=== PATIENT | female | born 2000 | race Caucasian/White ===

== ENCOUNTER 2024-02-21 17:57 | Inpatient (IN) | payer OTHER, SELFPAY ==
[~2024-02-21] VITALS: Ht 160 cm; Wt 88.6 kg
[2024-02-21] MEDS ORDERED: MED REC CURRENTLY UNOBTAINABLE XX SCH (20:55)
[2024-02-22] MEDS ORDERED: MAALOX 30 ML SUSP *UDC PO PRN (00:25)
[2024-02-22] MEDS ORDERED: ACETAMINOPHEN TAB 650MG DOSE (2X325MG) PO PRN (00:25)
[2024-02-22] MEDS ORDERED: traZODone 50 MG TAB PO PRN (00:25)
[2024-02-22] MEDS ORDERED: diphenhydrAMINE 25MG CAP PO PRN (00:25)
[2024-02-22] MEDS ORDERED: MOM 30ML SUSPENSION UDC PO PRN (00:25)
[2024-02-22] MEDS: IBUPROFEN 400MG TAB PO PRN (02:00)
[2024-02-22 02:06] VITALS: BP 147/78; TEMP 97.8; O2SAT 96
[2024-02-22] MEDS: SERTRALINE HCL 25 MG TABLET PO SCH (08:50)
[2024-02-22] MEDS ORDERED: SERTRALINE HCL 25 MG TABLET PO SCH (09:00)
[2024-02-22] MEDS ORDERED: SERT25TA85 PO (09:07)
[2024-02-22] MEDS ORDERED: QUET50TA4 PO (09:07)
[2024-02-22] MEDS ORDERED: HOME MED LIST COMPLETE! XX SCH (09:10)
[2024-02-22 11:26] VITALS: BP 141/87; TEMP 97.5; O2SAT 100
[2024-02-22] MEDS: OLANZapine ORAL DISINTEGRATING TAB 5MG PO PRN (11:37)
[2024-02-22] MEDS: PANTOPRAZOLE 40MG TAB (PROTONIX) PO SCH (12:10)
[2024-02-22 12:21] LABS: BASO % 0.3 % (0.0-1.0); EOS # 0.1 10^3/uL (0.0-0.5); HEMATOCRIT 38.4 % (36.0-47.0); HEMOGLOBIN 13.1 g/dl (12.0-15.5); LYMPH # 2.9 10^3/uL (1.5-5.0); MEAN CORPUSCULAR HEMOGLOBIN 30.8 pg (27.0-33.0); MEAN CORPUSCULAR HGB CONC 34.1 g/dl (32.0-36.5); MEAN CORPUSCULAR VOLUME 90.1 fl (80.0-96.0); MONO # 0.9 10^3/uL (0.0-0.8); MONO % 6.9 % (2.0-8.0); NEUTROPHILS # 8.6 10^3/uL (1.5-8.5); NEUTROPHILS % 68.5 % (36.0-66.0); PLATELET COUNT, AUTOMATED 338 10^3/uL (150-450); RED BLOOD COUNT 4.26 10^6/uL (4.00-5.40); WHITE BLOOD COUNT 12.5 10^3/uL (4.0-10.0)
[2024-02-22 12:49] LABS: C REACTIVE PROTEIN QUANTITATIV < 0.40 MG/DL (<1.0)
[2024-02-22 12:51] LABS: ALBUMIN 3.9 G/DL (3.2-5.2); ALKALINE PHOSPHATASE 74 U/L (46-116); ALT/SGPT 67 U/L (7.0-40); AST/SGOT 49 U/L (<34); BILIRUBIN,TOTAL 0.4 MG/DL (0.3-1.2); BLOOD UREA NITROGEN 12 MG/DL (9-23); CARBON DIOXIDE LEVEL 24 MMOL/L (20-31); CHLORIDE LEVEL 108 MMOL/L (98-107); CREATININE FOR GFR 0.61 MG/DL (0.55-1.30); GLOMERULAR FILTRATION RATE > 60.0 (>60); GLUCOSE, FASTING 121 MG/DL (60-100); POTASSIUM SERUM 3.8 MMOL/L (3.5-5.1); SODIUM LEVEL 139 MMOL/L (136-145)
[2024-02-22 14:23] LABS: THYROID STIMULATING HORMONE 1.775 uIU/ML (0.55-4.78)
[2024-02-22 15:35] LABS: CHOLESTEROL RISK RATIO 2.21 (<5); HDL CHOLESTEROL 52.4 MG/DL (>40); LDL CHOLESTEROL 47.6 MG/DL (<100); NON-HDL-C 63.6 MG/DL
[2024-02-22 15:55] LABS: HEPATITIS B SURFACE ANTIGEN NEGATIVE (NEGATIVE)
[2024-02-22 16:16] LABS: HEPATITIS B CORE ANTIBODY IGM NEGATIVE (NEGATIVE); HEPATITIS C VIRUS ABY INDEX 0.02 INDEX (<0.8)
[2024-02-22 18:08] VITALS: BP 133/81; TEMP 97.7; O2SAT 100
[2024-02-22] MEDS: QUEtiapine FUMARATE 50MG TAB PO SCH (20:35)
[2024-02-22] MEDS ORDERED: QUEtiapine FUMARATE 50MG TAB PO SCH (21:00)
[2024-02-23 06:07] VITALS: BP 120/56; TEMP 97; O2SAT 99
[2024-02-23 07:41] LABS: CHOLESTEROL RISK RATIO 2.08 (<5); LDL CHOLESTEROL 38.6 MG/DL (<100)
[2024-02-23 18:00] VITALS: BP 124/72; TEMP 96.9; O2SAT 99
[2024-02-24 07:00] VITALS: BP 127/57; TEMP 97; O2SAT 98
[2024-02-24] MEDS ORDERED: QUET50TA4 PO (10:39)
[2024-02-24] MEDS ORDERED: SERT25TA85 PO (10:39)
[2024-02-24] MEDS ORDERED: PANT40TA29 PO (10:39)
== END 2024-02-24 13:40 | disposition home or self-care (01) | DRG 754 ==
LOC: M ED 17:57 → M PSY 02-22 00:25 → M ED INP 02-22 00:25 → M PSY 02-22 01:02
PROVIDERS: ADMIT Student in an Organized Health Care Education/Training Program; ATTEND Student in an Organized Health Care Education/Training Program
DX: F32.A Depression, unspecified (principal); R45.851 Suicidal ideations; F17.200 Nicotine dependence, unspecified, uncomplicated; F12.90 Cannabis use, unspecified, uncomplicated; F90.9 Attention-deficit hyperactivity disorder, unspecified type; R74.01 Elevation of levels of liver transaminase levels; E66.9 Obesity, unspecified; R07.89 Other chest pain; F43.10 Post-traumatic stress disorder, unspecified; F41.9 Anxiety disorder, unspecified; Z59.00 Homelessness unspecified; Z91.411 Personal history of adult psychological abuse; Z91.410 Personal history of adult physical and sexual abuse; Z91.51 Personal history of suicidal behavior; Z62.811 Personal history of psychological abuse in childhood; Z62.810 Personal history of physical and sexual abuse in childhood; Z62.812 Personal history of neglect in childhood; Z91.52 Personal history of nonsuicidal self-harm